=== PATIENT | female | born 1970 | race Hispanic/Latino ===

== ENCOUNTER 2020-02-17 23:59 | Observation (INO) | payer BC ==
[~2020-02-17] VITALS: Ht 154.9 cm; Wt 60.0 kg
[2020-02-18] VITALS (7 sets, daily range): BP systolic 114–133; BP diastolic 58–75
[2020-02-18] MEDS ORDERED: SODIUM CHLORIDE 0.45% 1,000 ML IV SCH (01:15)
[2020-02-18] MEDS ORDERED: CLONAZEPAM 1 MG TAB PO PRN (01:30)
[2020-02-18] MEDS ORDERED: HYDROCODONE/APAP 5MG-325MG TAB PO PRN (01:30)
[2020-02-18] MEDS ORDERED: AMOXICILLIN500 MG PO (01:44)
[2020-02-18] MEDS ORDERED: BENADRYL25 M1 PO (01:44)
[2020-02-18] MEDS ORDERED: [UNRECOGNIZED DRUG - OTHER] PO (01:44)
[2020-02-18] MEDS ORDERED: AZITHROMYCIN250 MG (01:44)
[2020-02-18 05:10] LABS: BASOPHILS % 0.4 % (0.0-1.0); EOSINOPHILS # (AUTO) 0.2 (0.0-0.4); EOSINOPHILS % 2.1 % (0.0-6.0); HEMATOCRIT 38.2 % (34.2-44.1); HEMOGLOBIN 13.1 g/dL (12.0-16.0); LYMPHOCYTES # (AUTO) 2.6 (1.0-3.2); LYMPHOCYTES % 26.1 % (18.0-39.1); MEAN CORPUSCULAR HEMOGLOBIN 30.3 pg (28-32); MEAN CORPUSCULAR HGB CONC 34.3 g/dL (31-35); MEAN CORPUSCULAR VOLUME 88.2 fL (81-99); MONOCYTES # (AUTO) 0.6 (0.2-0.8); MONOCYTES % 6.1 % (4.4-11.3); NEUTROPHILS # (AUTO) 6.4 (2.1-6.9); PLATELET COUNT 295 x10e3/uL (140-360); RED BLOOD COUNT 4.33 x10e6/uL (3.6-5.1); RED CELL DISTRIBUTION WIDTH 12.3 % (11.7-14.4)
[2020-02-18 05:32] LABS: ALANINE AMINOTRANSFERASE 9 IU/L (0-55); ALBUMIN 3.3 g/dL (3.5-5.0); ALBUMIN/GLOBULIN RATIO 1.2 (0.8-2.0); ALKALINE PHOSPHATASE 46 IU/L (40-150); ANION GAP 8.5 mmol/L (8-16); BLOOD UREA NITROGEN 8 mg/dL (7-26); BUN/CREATININE RATIO 12 (6-25); CARBON DIOXIDE 24 mmol/L (22-29); CHLORIDE 110 mmol/L (98-107); CHOL/HDL RATIO 3.5 (3.0-3.6); CHOLESTEROL 155 MD/DL (0-199); CREATININE, SERUM 0.68 mg/dL (0.57-1.11); EST GLOMERULAR FILTRATION RATE > 60 ML/MIN (60-); GLUCOSE 96 mg/dL (74-118); HDL CHOLESTEROL 44 MG/DL (40-60); LDL CHOLESTEROL 90 MG/DL (60-130); MAGNESIUM 1.8 MG/DL (1.3-2.1); PHOSPHORUS 2.8 MG/DL (2.3-4.7); POTASSIUM 3.5 mmol/L (3.5-5.1); SODIUM 139 mmol/L (136-145); TRIGLYCERIDES 104 MG/DL (0-149)
[2020-02-18 05:56] LABS: THYROID STIMULATING HORMONE 1.235 uIU/mL (0.350-4.940)
[2020-02-18] MEDS ORDERED: METFORMIN HCL 500 MG TAB PO SCH (07:30)
[2020-02-18] MEDS: METOPROLOL TARTRATE 25 MG TAB PO SCH ×2 (08:14→15:50)
--- NOTE | 2020-02-18 09:35 | NUR ---
ASSESSMENT: No spiritual concerns Pt expressed no spiritual/emotional concerns. Intervention: Provided hospitality and information on how to reach internet security specialist, if needed. Outcome: No need to follow at this time. AICHA BOWIE Supervisor [employer] Department Spiritual Care Department O: [phone]
[2020-02-18] MEDS ORDERED: LORATADINE10 MG PO (10:59)
[2020-02-18] MEDS ORDERED: TESSALON PERLE100 MG PO (10:59)
[2020-02-18] MEDS ORDERED: LEVAQUIN500 MG PO (10:59)
[2020-02-18] MEDS ORDERED: LOPRESSOR25 MG PO (11:01)
[2020-02-18] MEDS ORDERED: BENZONATATE 100 MG CAP PO SCH (11:15)
[2020-02-18] MEDS ORDERED: LORATADINE 10 MG TAB PO SCH (11:15)
--- NOTE | 2020-02-18 14:24 | Diagnostic Imaging Report ---
EXAMINATION: CHEST SINGLE (PORTABLE) INDICATION: Palpitations. Anxiety. COMPARISON: None FINDINGS: TUBES and LINES: None. LUNGS: Lungs are well inflated. Lungs are clear. There is no evidence of pneumonia or pulmonary edema. PLEURA: No pleural effusion or pneumothorax. HEART AND MEDIASTINUM: The cardiomediastinal silhouette is unremarkable. BONES AND SOFT TISSUES: No acute osseous lesion. Soft tissues are unremarkable. UPPER ABDOMEN: No free air under the diaphragm. IMPRESSION: No acute thoracic abnormality. Signed by: Dr. Attila Ramirez M.D. on 02/18/2020 2:21 PM
--- NOTE | 2020-02-18 17:22 | NUR ---
pt discharged home, medications given , pt was asked to follow up with her PCP, iv site removed no swelling no redness to site.
--- NOTE | 2020-02-18 20:17 | Discharge Summary ---
ADMISSION DIAGNOSES: Palpitations, anxiety, and seasonal allergies. DISCHARGE DIAGNOSES: Palpitations, anxiety, and seasonal allergies. HISTORY: Seasonal allergies. SURGICAL HISTORY: Hysterectomy. FAMILY HISTORY: The patient's mom has cancer. SOCIAL HISTORY: Noncontributory. HOSPITAL COURSE: A 49-year-old female admits with complaints of palpitations and anxiety that began last night while lying in bed. Her heart rate went to the 130s. She has been treated for seasonal allergies, but is noncompliant with antibiotics, amoxicillin and Zithromax. She complains of a constant cough with dry throat. On admission, the patient was started on metoprolol. EKG was 112 on admission but is running sinus rhythm now per telemetry. After starting metoprolol, the patient is feeling much better and the heart rate remained stable during hospital stay. TSH is within normal limits. Lipid panels within normal limits. A1c is 5.9%. The patient had a chest x-ray, which was negative. She will be discharged home with new prescriptions for metoprolol 25 b.i.d., loratadine and Tessalon Perles. She will follow up with primary care in 1 to 2 weeks. The patient understands discharge instructions and agrees to plan. Vital signs stable and the patient is afebrile. Dictated by Vandana Sun NP MD DELVIS Bettencourt/MODL /[id number]
== END 2020-02-18 17:08 | disposition home or self-care (01) ==
LOC: MED/SURG2 02-18 00:45
PROVIDERS: ADMIT Internal Medicine; ATTEND Internal Medicine
DX: R00.2 Palpitations (principal); F41.9 Anxiety disorder, unspecified; J30.2 Other seasonal allergic rhinitis; E11.9 Type 2 diabetes mellitus without complications
CPT/HCPCS: 36415; 71045; 80053; 80061; 82948; 83036; 83735; 84100; 84443; 85025; G0378